=== PATIENT | male | born 1990 | race American Indian/Alaskan Native ===

== ENCOUNTER 2019-05-04 14:25 | Emergency (ER) | payer BC ==
[2019-05-04 15:13] VITALS: BP 122/61
[2019-05-04] MEDS ORDERED: TETANUS,DIPH,PERTUSS(ACELL) VACCINE 0.5 ML SYRINGE IM ONE (18:08)
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
== END 2019-05-04 18:31 | disposition home or self-care (01) ==
LOC: ED 14:25
DX: T88.1XXA Other complications following immunization, not elsewhere classified, initial encounter (principal); T25.221A Burn of second degree of right foot, initial encounter; Z79.899 Other long term (current) drug therapy; X11.8XXA Contact with other hot tap-water, initial encounter; Y93.89 Activity, other specified; Y92.89 Other specified places as the place of occurrence of the external cause; Y99.8 Other external cause status
CPT/HCPCS: 90471; 90715